=== PATIENT | female | born 1950 | race Caucasian/White ===

== ENCOUNTER → 2018-06-11 13:22 | Outpatient (CLI) | payer MEDICARE, BC, SELFPAY ==
[2018-06-11 13:15] VITALS: BMI 30.9
--- NOTE | 2018-06-11 13:24 | RAD_ITS ---
STUDY: X-RAY - LUMBAR SPINE REASON FOR EXAM: Female, 67 years old. Chronic low back pain TECHNIQUE: 4 view(s) of the lumbar spine were obtained. Including flexion and extension views COMPARISON: None FINDINGS: Normal lumbar lordosis. There is a levoscoliosis of the lumbar spine. There is a normal alignment of the vertebrae. There is multilevel endplate spondylosis of the lumbar vertebrae. There is multi-level degenerative disc disease with multi-level disc space narrowing. There is no demonstrated fracture. The soft tissue structures are unremarkable. RAD/L/S Spine Min 4 Views IMPRESSION: Degenerative changes of the spine, as detailed above. Electronically Signed: Ra Anguiano DO at 8:26 EST Tel , Service support ,
== END ==
PROVIDERS: Family Provider Family Medicine; PCP Family Medicine; Referring Provider Orthopaedic Surgery; Visit Provider Orthopaedic Surgery
DX: M54.5 Low back pain (principal)
CPT/HCPCS: 72110

== ENCOUNTER → 2018-06-27 12:28 | Outpatient (CLI) | payer MEDICARE, BC, SELFPAY ==
[2018-06-11 13:15] VITALS: BMI 30.9
--- NOTE | 2018-06-27 12:34 | MRI_ITS ---
STUDY: MRI LUMBAR SPINE WITHOUT CONTRAST REASON FOR EXAM: Female, 67 years old. Back pain, bilateral leg pain with numbness and tingling. Stenosis. TECHNIQUE: Standardized fat and water weighted pulse sequences were obtained in the sagittal and axial planes. COMPARISON: 02/16/2017. FINDINGS: T11-T12: (Sagittal only). Normal endplates. Normal disc height, hydration and morphology. No ventral extradural defect. Normal central canal and bilateral intervertebral neural foramina. T12-L1: (Sagittal only). Anterior marginal spurs. Normal endplates. Prominent Schmorl's node in the left side of the T12 inferior endplate. Mild disc space height narrowing with small posterior bulging disc. Normal central canal and bilateral intervertebral neural foramina. Normal lumbar lordosis. There is no substantial scoliosis. Normal conus medullaris that terminates at the lower T12 vertebral body level. L1-2: Tiny Schmorl's node in the L1 inferior endplate. Normal L2 superior endplate. Moderate disc space height narrowing. Normal central canal and bilateral lateral recesses. Normal facet joints. Normal bilateral intervertebral neural foramina. L2-3: Modic type I degenerative vertebral marrow edema underneath the vertebral endplates. Small anterior and posterior marginal spurs.. Moderate disc space height narrowing. Small posterior bulging disc. Mild to moderate central canal stenosis with an AP canal diameter of 8 mm. Mild dorsal epidural lipomatosis. Normal bilateral lateral recesses. Mild asymmetric degenerative facet arthropathy. Normal bilateral intervertebral neural foramina. L3-4: Moderately pronounced disc space height narrowing. Modic type II degenerative vertebral marrow fatty changes underneath the vertebral endplates. Pronounced central canal stenosis with an AP canal diameter of 4.6 mm. Prominent dorsal epidural lipomatosis. Mild to moderate asymmetric degenerative facet arthropathy. Moderate stenosis of the right intervertebral neural foramen. Normal left intervertebral neural foramen. L4-5: Normal endplates. Moderate disc space height narrowing. Severe central canal stenosis with an AP canal diameter is 3.6 mm. Moderate dorsal epidural lipomatosis at. Left posterior ligamentum flavum hypertrophy. Moderately pronounced left degenerative facet hypertrophy. Mild right degenerative facet arthropathy. Mild stenosis of the left intervertebral neural foramen. Normal right intervertebral neural foramen. L5-S1: Normal endplates. Normal disc height, hydration and morphology. Normal bilateral facet joints. Normal central canal and bilateral lateral recesses. Normal bilateral intervertebral neural foramina. Normal visualized sacral ala. Normal visualized paraspinous soft tissue structures. MRI/Spine Lumbar (Routine) IMPRESSION: 1. Severe central canal stenosis at L4-L5 disc level secondary to developmentally short pedicles and dorsal epidural lipomatosis. The AP canal diameter is 3.6 mm. This is unchanged. 2. Pronounced central canal stenosis at L3-L4 disc level with an AP canal diameter 4.6 mm, moderate stenosis of the right intervertebral neural foramen and mild to moderate asymmetric degenerative facet arthropathy. This is unchanged. 3. No MRI evidence of lumbar extruded disc fragment. 4. Mild increase L2-L3 disc space height narrowing with new Modic type I degenerative vertebral marrow edema underneath the vertebral endplates. Small posterior bulging disc and mild to moderate central canal stenosis are unchanged. Electronically Signed: Nando Gonzales MD at 15:51 EST , Service support ,
== END ==
PROVIDERS: Family Provider Family Medicine; PCP Family Medicine; Referring Provider Orthopaedic Surgery; Visit Provider Orthopaedic Surgery
DX: M48.061 Spinal stenosis, lumbar region without neurogenic claudication (principal); M41.9 Scoliosis, unspecified
CPT/HCPCS: 72148

== ENCOUNTER → 2019-02-24 12:57 | Outpatient (CLI) | payer MEDICARE, BC, SELFPAY ==
[2018-08-20 10:36] VITALS: BMI 30.9
[2019-02-24 14:11] LABS: Amphetamine Urine VISTA NEGATIVE (<1000 ng/mL); Barbiturate Urine VISTA NEGATIVE (< 200 ng/mL); Benzodiazepine Urine VISTA NEGATIVE (< 200 ng/mL); Cocaine Urine VISTA NEGATIVE (< 300 ng/mL); Ecstacy Urine VISTA NEGATIVE (< 500 ng/mL); Methadone Urine VISTA NEGATIVE (< 300 ng/mL); PCP Urine VISTA NEGATIVE (< 25 ng/mL); THC Urine VISTA NEGATIVE (< 50 ng/mL); Vista UDS pH Range 5
== END ==
PROVIDERS: Family Provider Family Medicine; PCP Family Medicine; Referring Provider Anesthesiology Pain Medicine; Visit Provider Anesthesiology Pain Medicine
DX: F11.20 Opioid dependence, uncomplicated (principal)
CPT/HCPCS: 80307

== ENCOUNTER → 2019-10-09 | Outpatient (CLI) | payer MEDICARE, BC, SELFPAY ==
[2018-08-20 10:36] VITALS: BMI 30.9
[2019-10-09 13:17] LABS: Amphetamine Urine VISTA NEGATIVE (<1000 ng/mL); Barbiturate Urine VISTA NEGATIVE (< 200 ng/mL); Benzodiazepine Urine VISTA NEGATIVE (< 200 ng/mL); Cocaine Urine VISTA NEGATIVE (< 300 ng/mL); Ecstacy Urine VISTA NEGATIVE (< 500 ng/mL); Methadone Urine VISTA NEGATIVE (< 300 ng/mL); PCP Urine VISTA NEGATIVE (< 25 ng/mL); THC Urine VISTA NEGATIVE (< 50 ng/mL); Vista UDS pH Range 5
== END | disposition home or self-care (01) ==
PROVIDERS: PCP Family Medicine; Referring Provider Anesthesiology Pain Medicine; Visit Provider Anesthesiology Pain Medicine
DX: F11.20 Opioid dependence, uncomplicated (principal)
CPT/HCPCS: 80307

== ENCOUNTER → 2019-12-01 15:17 | Outpatient (CLI) | payer MEDICARE, BC, SELFPAY ==
[2018-08-20 10:36] VITALS: BMI 30.9
--- NOTE | 2019-12-01 15:25 | RAD_ITS ---
STUDY: X-RAY - PELVIS AND RIGHT HIP REASON FOR EXAM: Female, 69 years old. BACK PAIN THAT RADIATES TO RIGHT HIP, NUMBNESS AND TINGLING TECHNIQUE: 3 views of the pelvis and hip. COMPARISON: None. FINDINGS: There is a non-specific bowel gas pattern. Normal visualized soft tissue structures. There is partially visualized levoscoliosis of the lumbar spine. There is postoperative change in the pelvis. Normal bilateral iliac wings, sacroiliac joints and visualized sacrum. Normal bilateral superior and inferior pubic rami. Normal pubic symphysis. Normal bilateral ischial tuberosities. Normal visualized femoral head. Normal acetabulum. Normal hip joint. RAD/HIP, UNI W/ Pelvis 2-3 Views IMPRESSION: Partially Visualized lumbar spine levoscoliosis, Normal x-ray examination of the pelvis and hip. Postoperative change within the pelvis. Electronically Signed: Zuri Montero MD at 6:54 EDT Tel , Service support ,
--- NOTE | 2019-12-01 15:25 | MRI_ITS ---
STUDY: MRI LUMBAR SPINE WITHOUT CONTRAST REASON FOR EXAM: Female, 69 years old. back and rt leg pain, chronic pain , NKI TECHNIQUE: Standardized fat and water weighted pulse sequences were obtained in the sagittal and axial planes. COMPARISON: 06/27/2018 FINDINGS: T12-L1: Incompletely imaged. Normal lumbar lordosis. There is a levoscoliosis of the lumbar spine. Normal conus medullaris that terminates at the L1 level. L1-2: Bulging annulus and bilateral facet joint effusions with mild right foraminal stenosis. L2-3: Bulging annulus and bilateral facet hypertrophy and right facet joint effusion with mild central canal and moderate right foraminal stenoses. L3-4: Bulging annulus, epidural lipomatosis and bilateral facet hypertrophy with moderate to severe central canal and moderate to severe right and mild left foraminal stenoses. L4-5: Bulging annulus, epidural lipomatosis, and bilateral facet hypertrophy with moderate central canal and moderate to severe left foraminal stenoses. L5-S1: Bulging annulus and bilateral facet hypertrophy without compressive sequelae. Normal visualized sacral ala. Normal visualized paraspinous soft tissue structures. MRI/Spine Lumbar (Routine) IMPRESSION: Multilevel degenerative disease and epidural lipomatosis as described, not significantly changed. Moderate to severe foraminal stenoses are present on the right at L3-4 and on the left at L4-5. Moderate to severe central canal stenosis at the L3-4 level. Electronically Signed: Gurmeet Wise MD at 17:29 EDT Tel , Service support ,
== END ==
PROVIDERS: PCP Family Medicine; Referring Provider Anesthesiology Pain Medicine; Visit Provider Anesthesiology Pain Medicine
DX: M54.9 Dorsalgia, unspecified (principal); M79.606 Pain in leg, unspecified; M25.551 Pain in right hip
CPT/HCPCS: 72148; 73502

== ENCOUNTER → 2020-06-17 15:27 | Outpatient (CLI) | payer MEDICARE, BC, SELFPAY ==
[2020-06-17 16:51] LABS: Amphetamine Urine VISTA NEGATIVE (<1000 ng/mL); Barbiturate Urine VISTA NEGATIVE (< 200 ng/mL); Benzodiazepine Urine VISTA NEGATIVE (< 200 ng/mL); Cocaine Urine VISTA NEGATIVE (< 300 ng/mL); Ecstacy Urine VISTA POSITIVE (< 500 ng/mL); Methadone Urine VISTA NEGATIVE (< 300 ng/mL); PCP Urine VISTA NEGATIVE (< 25 ng/mL); THC Urine VISTA NEGATIVE (< 50 ng/mL); Vista UDS pH Range 5
== END ==
PROVIDERS: PCP Family Medicine; Referring Provider Anesthesiology Pain Medicine; Visit Provider Anesthesiology Pain Medicine
DX: F11.20 Opioid dependence, uncomplicated (principal)
CPT/HCPCS: 80307

== ENCOUNTER → 2020-10-14 14:57 | Outpatient (CLI) | payer MEDICARE, BC, SELFPAY ==
--- NOTE | 2020-10-14 15:03 | RAD_ITS ---
STUDY: X-RAY - CERVICAL SPINE REASON FOR EXAM: Female, 69 years old. NECK/L ARM PAIN TECHNIQUE: 3 view(s) of the cervical spine were obtained. COMPARISON: None FINDINGS: Normal anterior atlantoaxial articulation. Normal odontoid process. Normal cervical lordosis. Normal vertebral bodies and endplates. There is multi-level degenerative disc disease with multilevel disc space narrowing. The soft tissue structures are unremarkable. RAD/Cerv Spine 2 or 3 Views IMPRESSION: Multilevel degenerative changes, no acute findings Electronically Signed: Oswaldo Gomez MD at 17:06 EDT , Service support ,
== END ==
PROVIDERS: PCP Family Medicine; Referring Provider Anesthesiology Pain Medicine; Visit Provider Anesthesiology Pain Medicine
DX: M54.2 Cervicalgia (principal); M79.602 Pain in left arm
CPT/HCPCS: 72040

== ENCOUNTER → 2020-11-26 09:45 | Outpatient (CLI) | payer MEDICARE, BC, SELFPAY ==
--- NOTE | 2020-11-26 09:51 | RAD_ITS ---
STUDY: X-RAY - LEFT SHOULDER REASON FOR EXAM: Female, 70 years old. Pain, decreased range of motion TECHNIQUE: 4 view(s) of the shoulder. COMPARISON: None. FINDINGS: There is moderate degenerative arthrosis of the glenohumeral articulation. There is degenerative arthrosis of the acromioclavicular joint without inferior osseous spur formation. Normal acromion. Normal humeral head and visualized proximal humerus. The soft tissue structures are unremarkable. Normal visualized pulmonary apex. RAD/Shoulder min 2 Views IMPRESSION: Glenohumeral and AC joint arthrosis, no demonstrated fracture or suspicious osseous lesion Electronically Signed: Oswaldo Gomez MD at 10:42 EDT , Service support ,
== END ==
PROVIDERS: PCP Family Medicine; Referring Provider Anesthesiology Pain Medicine; Visit Provider Anesthesiology Pain Medicine
DX: M25.512 Pain in left shoulder (principal)
CPT/HCPCS: 73030

== ENCOUNTER → 2020-12-29 07:05 | Outpatient (CLI) | payer MEDICARE, BC, SELFPAY ==
--- NOTE | 2020-12-29 07:09 | MRI_ITS ---
STUDY: MRI LEFT SHOULDER REASON FOR EXAM: Female, 70 years old. pain, NO TRAUMA, C/O SHOUDLER ''POPPING and quot; TECHNIQUE: Standardized fat and water weighted pulse sequences were obtained in all 3 orthogonal planes. COMPARISON: X-ray dated 11/26/2020. FINDINGS: Mild supraspinatus and infraspinatus tendinosis with low-grade partial thickness insertional tendon tears (coronal image 11 series 5). Mild infraspinatus tendinosis without tear. Mild subscapularis tendinosis without tear. Normal teres minor tendon. Moderate supraspinatus muscle atrophy (sagittal image 1 series 6). Mild intracapsular long biceps tendinosis. Biceps labral anchor intact. Labral degeneration with tearing (axial images 7 and 8 series 2). Capsular ligaments intact. Normal rotator cuff interval. Moderate glenohumeral cartilage loss with inferior glenoid bone marrow edema/contusion. Small volume glenohumeral joint effusion with multiple anterior joint space small loose bodies (axial image 12 and coronal image 15). No subacromium subdeltoid bursitis. Moderate acromioclavicular joint arthrosis. Minimal anterior interval narrowing. No acute fracture, dislocation or bone destruction. Intact coracohumeral and coracoacromial ligaments. Normal quadrilateral space. Normal axillary space. Normal deltoid muscle. Normal trapezius muscle. MRI/Upper Ext Joint Only(Routine) IMPRESSION: Rotator cuff tendinosis with low-grade partial thickness insertional tears Moderate supraspinatus muscle atrophy Mild intracapsular long biceps tendinosis Labral degeneration with tearing Moderate glenohumeral and AC joint arthrosis with early anterior interval narrowing Joint effusion with anterior joint space loose bodies/debris Electronically Signed: Liu Schmidt DO at 10:06 EDT Tel , Service support ,
== END ==
PROVIDERS: PCP Family Medicine; Referring Provider Physician Assistant; Visit Provider Physician Assistant
DX: M75.42 Impingement syndrome of left shoulder (principal)
CPT/HCPCS: 73221

== ENCOUNTER → 2021-02-18 12:35 | Outpatient (CLI) | payer MEDICARE, BC, SELFPAY ==
--- NOTE | 2021-02-18 12:41 | ECHOD_ITS ---
Reason For Study: Abnormal EKG Procedure This was a 2D Doppler, Color Flow transthoracic echocardiogram. Exam performed in department. Left Ventricle Normal LV size. Mild concentric left ventricular hypertrophy. Left ventricular systolic function is normal. The estimated ejection fraction is 65 %. Stage 1 diastolic dysfunction. No regional wall motion abnormalities noted. Right Ventricle Normal RV size. Normal systolic function. Atria Normal left atrium. Normal right atrium. Mitral Valve Normal mitral valve. Tricuspid Valve Normal tricuspid valve. Aortic Valve Normal aortic valve. Trisinus/trileaflet aortic valve. Pulmonic Valve Normal pulmonic valve. Great Vessels Normal aortic root. The pulmonary artery is normal size. Normal inferior vena cava. Pericardium/Pleural No pericardial effusion. MMode/2D Measurements & Calculations LVIDd: 3.8 cm IVSd: 1.2 cm LA dimension: 4.4 cm LVIDs: 1.7 cm LVPWd: 1.2 cm RVDd: 3.4 cm FS: 55.3 % LAV(MOD-bp): 62.6 ml LA A4 area: 19.9 cm2 RA A4 area: 13.5 cm2 LAV(MOD-bp) Indexed: 32.8 ml/m2 LAV(MOD-sp2): 61.8 ml LAV(MOD-sp4): 62.3 ml Time Measurements MV dec time: 0.21 sec Doppler Measurements & Calculations MV E max sammy: 84.6 cm/sec Lat Peak E' Sammy: 2.0 cm/sec Med Peak E' Sammy: 3.4 cm/sec MV A max sammy: 106.8 cm/sec E/E' lat: 42.3 E/E' med: 25.2 MV E/A: 0.79 MV V2 max: 117.5 cm/sec MV P1/2t max sammy: 89.6 cm/sec Ao V2 max: 140.6 cm/sec MV max P.5 mmHg MV P1/2t: 81.4 msec Ao max P.9 mmHg MV V2 mean: 63.7 cm/sec MV dec slope: 322.4 cm/sec2 MV mean P.9 mmHg MVA(P1/2t): 2.7 cm2 MV V2 VTI: 34.5 cm LV V1 max: 117.8 cm/sec PA V2 max: 79.0 cm/sec LV V1 max P.5 mmHg ECHO/Echo Complete Interpretation Summary Normal LV size. Mild concentric left ventricular hypertrophy. Left ventricular systolic function is normal. The estimated ejection fraction is 65 %. Stage 1 diastolic dysfunction. Ordering Physician: Marcos Mata Referring Physician: Michael Perdomo Performed By: Gene Beyer RCS
== END ==
PROVIDERS: PCP Family Medicine; Referring Provider Internal Medicine Cardiovascular Disease; Visit Provider Internal Medicine Cardiovascular Disease
DX: R06.02 Shortness of breath (principal)
CPT/HCPCS: 93306

== ENCOUNTER 2021-02-22 05:43 | Day surgery (SDC) | payer MEDICARE, BC, SELFPAY ==
[2021-02-22] VITALS (12 sets, daily range): BP systolic 109–158; BP diastolic 61–114; PULSE 54–88; RESP 16–18; TEMP 36.1–37.1; O2SAT 86–96; BMI 34.2
--- NOTE | 2021-02-22 07:15 | HP.PCM_ITS ---
History and Physical Date of Admission: 02/22/21 Date of Service: 01/28/21 MR#:[id number]: CANDY DAYRep #:[id number] Provider:Dr. Pedro Morataya DOAge/Sex: 70/F Location[facility]:Signed Intake Intake Visit Reasons: L shoulder Allergies ibuprofen Allergy (Mild, Verified 01/28/21 10:07) rash sulfamethoxazole [From Bactrim] Allergy (Mild, Verified 01/28/21 10:07) rash trimethoprim [From Bactrim] Allergy (Mild, Verified 01/28/21 10:07) rash Medications hydrocodone-acetaminophen 5-325mg 5mg-325mg 1 tab PO Q6H PRN 01/21/18 [History Confirmed 01/28/21] gabapentin 100 mg capsule 100 mg PO DAILY 06/11/18 [History Confirmed 01/28/21] sertraline 25 mg tablet ea PO 12/13/20 [History Confirmed 01/28/21] metoprolol tartrate 25 mg tablet 25 mg PO BID tab 01/05/21 [History Confirmed 01/28/21] tizanidine 4 mg tablet 4 mg PO PRN tab 01/05/21 [History Confirmed 01/28/21] [facility] Medical History (Updated 01/28/21 @ 11:[address] Pedro Morataya DO) Acute foot pain Allergic rhinitis Anxiety state Fibrocystic breast changes, bilateral History of herniated intervertebral disc Mastodynia Pure hypertriglyceridemia Surgical History History of hysterectomy (~2002) History of ileostomy Family History Mother No problems noted. Social History Smoking Status: Never smoker HPI L shoulder Details: Parts of this documentation were recorded by a scribe, this documentation accurately reflects the service provided and the decisions made by me, Dr. Pedro Morataya DO 01/28/21 0752. CANDY DAY is a 70 year old F here today to discuss possible arthroscopy of her left shoulder. Patient had a left shoulder MRI on: 12/29/2020. Pain is described as constant. 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 Patient voiced she has difficulty with sleeping d/t her pain. Patient voiced she has failed medications to control her pain. Patient has been using a topical cream through [employer], that has been providing some relief. Patient did begin physical therapy through [facility]. Right now, it has been placed on hold d/t the physical therapist coming down with ROBERTO. Patient does not want to go through [facility]. Patient states she has tried and failed injections through Dr. Odom and through our office. Pain is located with her deltoid. Tender to the touch. Denies numbness, tingling or other associated symptoms. Pain at times with radiate to her forearm. Explained mechanical pain. Denies any accident or injury. Patient is right hand dominant. Patient denies any substance use, denies tobacco use, and voiced she may have a glass of wine per week. Patient will take 3 tablet of the hydrocodone-acetaminophen 5/325mg daily, and has been for years. Ortho Exam General General: Yes no acute distress and Yes well groomed Neurologic: Yes alert and Yes oriented x3 Psychologic: Yes reasonable and appropriate Left Shoulder Skin/Wound: No ecchymosis and No erythema Testing: Yes Hawkin's, No TTP AC Joint, Yes AROM-Forward Elevation 0-180 (with pain), Yes AROM-External Rotation at 90 0-60, Yes empty can and Yes belly press normal SHOULDER: no joint effusion good strength pain with resisted abduction 5/5 external strength Supplemental Info 12/29/2020 MRI left shoulder: Supraspinatus infraspinatus tendinosis with partial- thickness insertional fraying subscapularis tendinosis moderate supraspinatus muscle atrophy biceps tendinosis moderate glenohumeral cartilage loss multiple anterior joint space loose bodies no subacromial bursitis moderate AC joint arthrosis Personally reviewed the patient's medical history, medications, surgeries and recent exams if available. Explained patient may not benefit from shoulder arthroscopy d/t arthritis. Explained patient may or may not have painful popping after the procedure. Explained we can proceed with surgery to clean out the loose bodies, and may have painful popping post-op still. Risks, benefits and alternatives of surgery reviewed including risk of bleeding, infection, nerve, artery and/or tissue damage continued pain or symptoms and expected post-operative course. Discussed and explained a possible shoulder replacement. Explained it would resurface her joint, and remove the loose bodies. Also discussed continuing the consecrative treatments such as, physical therapy, NSAIDs, and steroid injections. Patient would not like to proceed with shoulder replacement. Patient would like to proceed with a shoulder arthroscopy. Explained after 48 hours the initial dressing would come off post-op. Explained physical therapy is started post-op. Discussed the date of February 22, 2021. Explained and discussed with patient will obtain medical clearance from her PCP. Provided patient with a copy of the signed surgical consent. All questions answered. Patient in agreement of plan. Follow up two weeks post-op or sooner if pain, swelling, numbness or associated symptoms, or concerns develop. Coding Level of Care Code Off vis,est,level 3 Diagnoses DJD of left shoulder M19.012 Osteoarthritis type: primary Loose body in left shoulder M24.012 Impingement syndrome, shoulder, left M75.42 Tendinopathy of left biceps M67.922 Assessment and Plan Assessment and Plan (1) DJD of left shoulder: Status: Acute Qualifiers: Osteoarthritis type: primary Qualified Code(s): M19.012 - Primary osteoarthritis, left shoulder (2) Loose body in left shoulder: Status: Acute (3) Impingement syndrome, shoulder, left: Status: Acute (4) Tendinopathy of left biceps: Status: Acute Plan - Dr. Pedro Morataya, DO: Ms. murray has ongoing left shoulder pain. She has failed conservative treatment including physical therapy subacromial and glenohumeral injection therapy. She continues to have mechanical feelings in the left shoulder joint that are very painful. We discussed arthroscopic surgery versus joint replacement surgery risks benefits and alternatives of both. She understands that there is significant risk that she continues to have pain after left shoulder arthroscopy removal of loose bodies subacromial decompression chondroplasty possible biceps tenotomy possible rotator cuff debridement from her amount of shoulder arthrosis. We discussed that total shoulder arthroplasty would be more of a definitive option and predictable outcome. She does not wish to proceed with shoulder arthroplasty at this time and does wish to try shoulder arthroscopy for the mechanical feelings. Explained patient may not benefit from shoulder arthroscopy d/t arthritis. Explained patient may or may not have painful popping after the procedure. Explained we can proceed with surgery to clean out the loose bodies, and may have painful popping post-op still. Risks, benefits and alternatives of surgery reviewed including risk of bleeding, infection, nerve, artery and/or tissue damage continued pain or symptoms and expected post-operative course. Discussed and explained a possible shoulder replacement. Explained it would resurface her joint, and remove the loose bodies. Also discussed continuing the consecrative treatments such as, physical therapy, NSAIDs, and steroid injections. Patient would not like to proceed with shoulder replacement. Patient would like to proceed with a shoulder arthroscopy. Explained after 48 hours the initial dressing would come off post-op. Explained physical therapy is started post-op. Discussed the date of February 22, 2021. Explained and discussed with patient will obtain medical clearance from her PCP. Needs to stop all NSAIDs 7 days prior to surgery which she does not take anyway. Provided patient with a copy of the signed surgical consent. All questions answered. Patient in agreement of plan. Follow up two weeks post-op or sooner if pain, swelling, numbness or associated symptoms, or concerns develop. I have re-examined the patient. There are no clinical changes since date of exam
[2021-02-22] MEDS: Cefazolin 2 GM in 0.9% Normal Saline 100 ML IV (07:24)
[2021-02-22] MEDS: Epinephrine (1 mg/ml) 1 MG/ML VIAL (07:54)
[2021-02-22] MEDS: Lidocaine 1% /Epi 1:100 (20ml) 20 ML Vial (07:54)
[2021-02-22] MEDS: Bupivacaine Mpf 0.5% 30 ML VIAL (08:18)
[2021-02-22] MEDS: MethylPREDNISolone Acetate 40 MG/ML Vial IM (08:18)
--- NOTE | 2021-02-22 08:30 | PCM.OPRPT ---
Report of Operation Date of Procedure: 02/22/21 Description of Surgical Findings:: Preoperative diagnosis: Left shoulder DJD loose bodies impingement Postoperative diagnosis: Grade 4 cartilage wear humeral head and glenoid degenerative labral tearing loose bodies anterior acromial spurring causing impingement Procedure: Arthroscopic removal of loose bodies chondroplasty of the humeral head subacromial decompression Anesthesia: General with interscalane block; EBL: 10 cc Complications: none Indication for procedure: 70-year-old female patient with mechanical left shoulder pain who failed conservative treatment and wished to undergo elective arthroscopic surgery I did explain to her due to the degree of her arthrosis she is high risk for having continued symptoms and pain and a total shoulder arthroplasty may be more appropriate however patient did wish to proceed with an arthroscopic surgery. risks benefits and alternatives of the procedure were reviewed including risk of bleeding infection nerve artery tissue damage need for further surgery continued pain postoperative stiffness and need for postoperative physical therapy and continued pain. Procedure : Patient was met in the preoperative holding area the operative extremity was identified by both the patient and the physician and was marked. Patient was met by anesthesia and brought back to the operating room on a wheeled cart. She was transferred to the operating table in the supine position. Anesthesia was started. Patient was then positioned in the beachchair configuration. Bony prominences were well-padded. The patient was prepped and draped in the usual sterile fashion. A timeout was called to ensure the proper patient procedure and extremity were being contemplated. Anatomic landmarks were palpated and marked with a marking pen. A 1% lidocaine with epinephrine was injected into the planned portal sites. An 11 blade scalpel was used to make a stab incision in the posterior lateral portal. Arthroscope was inserted into the glenohumeral space with ease. Inflow and outflow tubes were attached and arthroscopic visualization began. An anterior portal was established with an 18-gauge spinal needle. Immediately there was noted to be severe glenohumeral arthrosis with grade 4 cartilage wear of the humeral head and glenoid degenerative labral tearing circumferentially and loose bodies present within the glenohumeral joint and the axillary pouch, shaver was used to remove the loose bodies and perform a labral debridement and chondroplasty rotator cuff was evaluated there was only slight fraying of the anterior supraspinatus but the footprint was intact and the same goes for the subscapularis, the biceps did not have any significant tearing or inflammation and was left alone the arthroscope was then repositioned into the subacromial space there was significant bursal thickening of acromial decompression of bursal tissue as well as acromioplasty were performed there is anterior acromial spurring which was removed bursal side of the cuff was evaluated and there was no full-thickness tear seen or palpated with probe probe the wound was thoroughly irrigated through the scope followed by a subacromial injection with 40 mg Depo-Medrol 4 mg of morphine and 8 cc of 0.5% Marcaine plain. Suture portals were closed with 3-0 nylon arthroscopic stitches followed by Xeroform 4 x 4 ABD and a Ioban dressing. A regular sling was placed. Anesthesia was reversed and patient tolerated the procedure well was and was transferred to the PACU all counts were correct patient will follow-up in the office in 2 weeks patient may begin active range of motion immediately
--- NOTE | 2021-02-22 08:35 | PCM.DC ---
Discharge Instructions Dressing / Incision Additional Dressing/Incision Instructions:: Leave the dressing on and intact for 48 hours. Then remove and shower with warm water and antibacterial soap daily. But do not submerge in tub for 3 weeks. ice shoulder 15 min on and 15 mins off next 72 hrs. May remove sling for elbow wrist and shoulder immediate range of motion when tolerated sling is for comfort only and may be removed . discontinue sling over the course to the week as pain allow. Do not lift push or pull greater then 5 lbs with operative extremity. Encourage finger and wrist range of motion. If any concerns call Dr. Morataya's office. Follow Up Care Please Follow Up With: Pedro Morataya DO When: 2 weeks Test Results: Test results from this visit will be discussed in further detail at your follow-up appointment, if applicable. Discharge Plan Admission Attending Provider: Pedro Morataya Primary Care Provider: Michael Perdomo Discharge Orders/Prescriptions Prescriptions: New oxycodone 5 mg tablet 5 - 10 mg PO Q4H PRN (Reason: pain) 7 Days Qty: 60 RF: 0 Discontinued hydrocodone-acetaminophen 5-325 mg tablet 1 tab PO Q6H PRN (Reason: Pain) RF: 0 No Action gabapentin 100 mg capsule 100 mg PO TID RF: 0 sertraline 25 mg tablet 25 mg PO DAILY RF: 0 metoprolol tartrate 25 mg tablet 25 mg PO BID RF: 0 tizanidine 4 mg tablet 4 mg PO PRN PRN (Reason: Pain) RF: 0 acyclovir 200 mg capsule 200 mg PO DAILY PRN (Reason: SHINGLES) RF: 0 losartan 50 mg tablet 50 mg PO DAILY Qty: 90 RF: 3 Referrals / Follow Up: Michael Perdomo MD [Primary Care Provider] - Disposition Disposition (needs filled in before D/C Order can be placed): Home, Self Care
== END 2021-02-22 11:45 | disposition home or self-care (01) ==
LOC: SDC 05:44 → AC 05:45
PROVIDERS: PCP Family Medicine; Referring Provider Orthopaedic Surgery; Visit Provider Orthopaedic Surgery
PROC: (CPT 29827; principal; 2021-02-22 07:10)
DX: M19.012 Primary osteoarthritis, left shoulder (principal); M24.012 Loose body in left shoulder; M75.42 Impingement syndrome of left shoulder; M67.922 Unspecified disorder of synovium and tendon, left upper arm; I10 Essential (primary) hypertension; E78.5 Hyperlipidemia, unspecified; E66.9 Obesity, unspecified; Z68.34 Body mass index [BMI] 34.0-34.9, adult; Z78.0 Asymptomatic menopausal state; Z20.822 Contact with and (suspected) exposure to COVID-19
CPT/HCPCS: 01630; 29823; 29826; 64415; 87426; J7120; J2405

== ENCOUNTER 2021-07-19 07:04 | Outpatient (CLI) | payer MEDICARE, BC, SELFPAY ==
--- NOTE | 2021-07-19 07:12 | CT_ITS ---
STUDY: CT LEFT SHOULDER REASON FOR EXAM: Posttraumatic osteoarthritis of the left shoulder, surgical planning. TECHNIQUE: The patient was scanned in a multi detector CT scanner. High resolution transaxial imaging was performed without the administration of intravenous contrast material. Sagittal and coronal images were reconstructed. Individualized dose optimization techniques were used for this CT. COMPARISON: MRI images 12/29/2020. FINDINGS: There is glenohumeral arthrosis with small marginal osteophytes of the humeral head, subchondral cystic change of the inferior glenoid and joint space narrowing (coronal reconstructions 48-54). There is cystic change of the greater tuberosity (coronal reconstruction 43). Normal coracoid process. There is mild acromioclavicular arthrosis (coronal reconstruction 45) with mild cystic change of the distal clavicle. There is a Type II morphology (curved), with a neutral orientation. There is atrophy with partial fat replacement of the supraspinatus muscle (sagittal reconstruction 48). CT/Extremity Upper without Contra IMPRESSION: Glenohumeral osteoarthritis. Mild acromioclavicular osteoarthritis. Atrophy of the supraspinatus muscle. Electronically Signed: Iraj Masters MD at 14:58 EDT ,
== END 2021-07-19 23:59 | disposition home or self-care (01) ==
LOC: CT 07:07
PROVIDERS: PCP Family Medicine; Referring Provider Student in an Organized Health Care Education/Training Program; Visit Provider Student in an Organized Health Care Education/Training Program
DX: M19.112 Post-traumatic osteoarthritis, left shoulder (principal)
CPT/HCPCS: 73200

== ENCOUNTER 2021-08-11 05:56 | Day surgery (SDC) | payer MEDICARE, BC, SELFPAY ==
--- NOTE | 2021-08-03 10:54 | EKG12_ITS ---
Test Reason : PREOP Blood Pressure : / mmHG Vent. Rate : 056 BPM Atrial Rate : 056 BPM P-R Int : 192 ms QRS Dur : 072 ms QT Int : 438 ms P-R-T Axes : 017 -09 141 degrees QTc Int : 422 ms Sinus bradycardia Left ventricular hypertrophy with repolarization abnormality ST/T wave abnormality: consister LVH repolarization; myocardial ischemia Abnormal ECG Confirmed by DANYELLE NAVARRO, WILFRID ([id number]), multimedia editor MARITO MOULTON ([id number]) on 08/04/2021 11:22:02 AM Referred By: Chirag Peres Confirmed By:WILFRID BASSETT MD
--- NOTE | 2021-08-03 11:10 | RAD_ITS ---
STUDY: X-RAY CHEST REASON FOR EXAM: Female, 70 years old. Preop TECHNIQUE: 2 views. PA and lateral. COMPARISON: None. FINDINGS: LUNGS: No consolidation. No pneumothorax. MEDIASTINUM: Aorta tortuous and atherosclerotic.. CARDIAC SILHOUETTE: Not enlarged. BONES AND SOFT TISSUES: Degenerative changes in the dorsal spine and scoliosis. No acute abnormalities. Surgical clips right upper abdomen previous cholecystectomy. RAD/Chest PA and Lateral IMPRESSION: No evidence of active intrathoracic disease. Electronically Signed: Laureen Guillen MD at 3:36 EDT ,
[2021-08-03 11:46] LABS: Absolute Lymphocyte Count 1.27 X10^3/uL (0.83-4.51); Absolute Neutrophil Count 3.2 X10^3/uL (2.0-7.7); Basophil# 0.04 X10^3/uL; Basophil% 0.8 % (0-1); Eosinophil# 0.14 X10^3/uL; Eosinophils% 2.7 % (0-5); Hemoglobin 13.7 g/dL (12.0-15.0); Lymphocyte # 1.27 X10^3/ul (0.83-4.51); Lymphocyte % 24.2 % (19-41); Mean Corp Hgb Conc 33.4 g/dL (32-36); Mean Corpuscular Volume 89.9 fL (81-99); Mean Platelet Vol. 9.8 fl (6.2-12.0); Monocyte# 0.59 X10^3/uL; Monocyte% 11.3 % (0-10); NRBC Flagged by Analyzer 0 % (0-5); Neutrophil # 3.18 X10^3/uL (2.7-7.7); Neutrophil % 60.6 % (47-70); Platelet Count 208 K/mm3 (150-450); RBC Distribution Width CV 13.2 % (11.6-14.6); RBC Distribution Width SD 43.8 fl (35.1-43.9); Red Blood Count 4.56 M/mm3 (4.2-5.4); White Blood Count 5.2 K/mm3 (4.4-11.0)
[2021-08-03 12:15] LABS: Anion Gap 6 (5-15); BUN 15 mg/dL (7-18); BUN/Creat Ratio 16.7 RATIO (10-20); Calcium,Total 9.6 mg/dL (8.5-10.1); Chloride 108 mmol/L (98-107); EST Glomerular Filtration Rate 66 mL/min (>60); Est Glom Filt Rate - Afr Amer 79 mL/min (>60); Glucose 100 mg/dL (74-106); Sodium Level 139 mmol/L (136-145)
[2021-08-10 13:10] VITALS: BP 127/55; BP 139/83; PULSE 61; RESP 14; TEMP 36.1; O2SAT 94
[2021-08-11] VITALS (9 sets, daily range): BP systolic 120–139; BP diastolic 58–85; PULSE 50–78; RESP 15–16; TEMP 36–36.6; O2SAT 92–97; BMI 34.0
[2021-08-11] MEDS: Lactated Ringers 1,000 ML 999 ML IV (06:55)
[2021-08-11] MEDS: Gabapentin 600 MG Tablet PO (06:56)
[2021-08-11] MEDS: Lactated Ringers 1,000 ML 75 ML IV (06:56)
[2021-08-11] MEDS: Acetaminophen 500 MG Tablet 1000 MG PO (06:56)
[2021-08-11 07:40] LABS: Bedside Glucose 106 mg/dL (74-106)
--- NOTE | 2021-08-11 08:00 | BON_PTH ---
PATIENT: CANDY DAY LOC: [facility] [place] U#:[id number] AGE/SX: 70/F ROOM: RE08/11/[address]: Dr. Chirag Peres DO : 1950 BED: DIS: 08/11/2021 SPEC #: [id number] RECD: 08/11/21 12:48 STATUS: DK REQ #: [id number] RICH: 08/11/21 08:[address]: Chirag Peres DEPT: SURGICAL PATHOLOGY RECD BY: Rhea Deleon ENTERED: 08/12/21 07:21 SP TYPE: Bone OTHR DR: Dr. Michael Perdomo MD Tissues: Bone of shoulder, NOS Procedures: Decalcification bone/plaque Surgery Specimen Level IV HEADER OPERATION: Left reverse total shoulder arthroplasty PRE-OP DIAGNOSIS: Posttraumatic osteoarthritis left shoulder TISSUE SUBMITTED: Left humeral head MICROSCOPIC DIAGNOSIS Left humeral head, total shoulder replacement/resection: Humeral head with degenerative osteoarthritic changes. SJ:delia 08/17/2021 MICROSCOPIC DESCRIPTION Slides are reviewed. GROSS DESCRIPTION Received in fixative is one container labeled with the patient's name and designated left humeral head. The specimen consists of a humeral head measuring 5 x 4.5 x 2.5 cm. The articular surface shows areas of erosion and osteophyte formation. Magazine Editor sections are submitted in one cassette after decalcification. / JUDIT:delia 08/12/2021 TC:5 CPT: 52868, 74616
[2021-08-11] MEDS: Cefazolin 2 GM in 0.9% Normal Saline 100 ML IV (08:11)
[2021-08-11] MEDS: TXA 1000mg in NS100 100ml (IVPB at Incision) 660 MG IV (08:36)
[2021-08-11] MEDS: Lactated Ringers 1,000 ML 125 ML IV (10:30)
--- NOTE | 2021-08-11 11:01 | PCM.DC ---
Discharge Instructions Follow Up Care Test Results: Test results from this visit will be discussed in further detail at your follow-up appointment, if applicable. Discharge Plan Admission Attending Provider: Chirag Peres Primary Care Provider: Michael Perdomo Instructions Additional Instructions / Restrictions: Follow preprinted instructions from your surgeon's office Discharge Orders/Prescriptions Prescriptions: New hydrocodone-acetaminophen 5-325 mg tablet 2 tab PO Q6H PRN (Reason: pain) 7 Days Qty: 42 RF: 0 docusate sodium [Colace] 100 mg capsule 100 mg PO BID 7 Days Qty: 14 RF: 0 Continued gabapentin 100 mg capsule 100 mg PO TID RF: 0 metoprolol tartrate 25 mg tablet 25 mg PO BID RF: 0 tizanidine [Zanaflex] 4 mg tablet 4 mg PO PRN PRN (Reason: Pain) RF: 0 losartan 50 mg tablet 50 mg PO DAILY Qty: 90 RF: 3 Held hydrocodone-acetaminophen 5-325 mg tablet 1 tab PO 4X/DAY RF: 0 Hold Instructions: Resume on 08/25/21. Resume home dosing after post-op pain is improving Other Ambulatory Orders: 12 Lead EKG (Routine) Location: None Selected Ordered By: Dr. Liu Martinez Referrals / Follow Up: Michael Perdomo MD [Primary Care Provider] - Chirag Peres DO [STAFF PHYSICIAN] - Within 2 Weeks Disposition Disposition (needs filled in before D/C Order can be placed): Home, Self Care
--- NOTE | 2021-08-11 11:05 | RAD_ITS ---
STUDY: X-RAY - LEFT SHOULDER REASON FOR EXAM: Female, 70 years old. Post op -- AP and Lateral X-Ray of operative shoulder in PACU TECHNIQUE: 2 view(s) of the shoulder. COMPARISON: None. FINDINGS: The patient status post left reverse shoulder replacement. There is good alignment. RAD/Shoulder min 2 Views IMPRESSION: Status post left shoulder replacement. There is good alignment. Electronically Signed: Humberto Baltazar MD at 11:29 EDT ,
--- NOTE | 2021-08-11 11:27 | SUR.PHASEI ---
PATIENT MONITORED ON ETCO2 PER ERAS PROTOCOL. WNL.
--- NOTE | 2021-08-11 12:13 | SUR.PHASEI ---
FAMILY UPDATED VIA MASONRY INSTRUCTOR
--- NOTE | 2021-08-11 14:08 | PCM.OPRPT ---
Report of Operation Description of Surgical Findings:: Preoperative diagnosis: Left shoulder primary glenohumeral osteoarthritis Postoperative diagnosis: Left shoulder primary glenohumeral osteoarthritis Procedure: Left reverse total shoulder arthroplasty Surgeon: Chirag Peres DO Security Representative: Enedina Calvo PA-C Anesthesia: General endotracheal Manager Unit: Brennen Nogueira CRNA Complications: None apparent Drains: None Estimated blood loss: 150 cc Urinary output: None cc IV fluids: Per anesthesia record Specimens: None Surgical implants: Tornier Aequalis PerFORM+ reversed lateralized baseplate 25 mm diameter, +3 lateralized glenosphere cobalt chrome 36 mm diameter, flex shoulder system reverse tray eccentric low thickness +0 mm, standard PTC humeral stem Aequalis Ascend Flex 132.5 degree angle size 2B, reverse insert C thickness +6 mm ultrahigh molecular weight polyethylene Surgical indications: This is a 70-year-old female with persistent left shoulder pain. X-rays were obtained in the outpatient setting and demonstrated moderate primary glenohumeral osteoarthritis. She has had extensive treatment to her left shoulder including injections with short-term relief, physical therapy, articular debridement and subacromial decompression last fall without significant relief. We discussed anatomic versus reverse shoulder arthroplasty. She had significant weakness in her rotator cuff on exam. I recommended a reverse shoulder arthroplasty. We obtained a preoperative CT scan for planning. The risks, benefits, alternatives the procedure was reviewed with the patient and he agreed to proceed. Risks included but were not limited to bleeding, infection, instability, loss of life or limb, risk of anesthesia, neurovascular injury, persistent pain, stiffness, prolonged immobilization, need for additional surgery, loosening of orthopedic hardware. She expressed understanding and wished to proceed with surgery. Surgical details: Patient arrived to [facility] morning of the procedure and was greeted by the same day surgery staff. Prior to her procedure, I greeted the patient in the preoperative holding area I identified the patient by name, record number, and date of . Informed consent was confirmed. The operative extremity was marked. All questions were answered to patient satisfaction. Patient was also seen by anesthesia staff. Interscalene block was administered prior to procedure for postoperative analgesia. At time of her procedure, patient was brought to the operative suite and positioned supine on a standard table with a beachchair attachment. General anesthesia was induced after all bony prominences were well-padded. Endotracheal tube was placed. After adequate anesthesia and securing the tube, we prepared the patient to be positioned in the beachchair position. A well-padded head of merchandise buying was applied. The nonoperative extremity was placed in a well arm gunter. She was then brought into the beachchair position after we confirmed an appropriate blood pressure. We then spun the bed 45 degrees. The operative extremity was then prepared. In the butterfly wing of the bed was removed and a well-padded torso strap was applied to secure the patient to the bed. The operative extremity was now free. We then prepped and draped the left upper extremity in normal, sterile orthopedic fashion. We then performed a timeout with all parties in attendance in agreement with the side, site, and operation be performed. 2 g Ancef was administered prior to incision by anesthesia staff, as well as 1 g TXA IV. No concerns were voiced and we elected to proceed. I first marked a standard deltopectoral incision just lateral to the coracoid process in line with the long axis of the humerus. Skin was sharply incised with 10 blade scalpel. I then dissected bluntly through the subcutaneous layers and found the fat stripe between the deltoid and pectoralis major. The cephalic vein was then identified and protected. It was retracted laterally with the deltoid. I then bluntly dissected underneath the deltoid with a Marks elevator. Tray retractor was placed. The upper 1 cm of the pectoralis major was released. I then identified the long head of the biceps tendon in the intertubercular groove. This was tenodesed in situ with #2 FiberWire. I then amputated the biceps proximal to the tenodesis site and followed the tendon to the supraglenoid tubercle where it was amputated. This identified the lesser and greater tuberosities. I then performed a subscapularis peel while rotating the humerus externally. I tagged the subscapularis for possible repair later with a tagging suture. I then made a anatomic neck cut of the cartilaginous surface of the humeral head. I placed a canal finding reamer at the superior apex of the humeral head. I then sequentially broached to a size 2 broach with excellent rotational control. I placed a humeral protector plate and subluxed the humeral head posteriorly. I then placed retractors around the posterior and anterior glenoid to expose the glenoid. Glenoid labrum was removed with Bovie cautery protecting the axillary nerve, which was in close proximity to the glenoid neck. We then used the custom guide from [employer] to position our centering pin. Guide was removed and pin was analyzed and compared to preoperative planning. It appeared to be in appropriate position. This was reamed about 1 mm deep. We then remove the reamer and used the cannulated drill for the central 35 mm screw. Pin was removed. Central screw and baseplate was assembled on the back table. We then inserted the baseplate and central screw the assembled baseplate to an appropriate depth. A Manning was used to confirm depth. Cortical screws then were placed in the most superior and inferior holes with good purchase. The baseplate had excellent purchase and the entire scapula would rotate with rotation of the baseplate. We then impacted the 36 mm +3 lateralized glenosphere with a standard eccentricity. Locking screw was then placed in the centering hole of the glenosphere with excellent purchase. We then removed retractors and turned our attention back to the humerus. I placed a low eccentric [place] +0 tray and 6 mm polyethylene insert. I then reduced the shoulder. There was excellent range of motion and stability in all planes of motion. We selected this as our final size. We removed trials from the humerus after final dislocation. I copiously irrigated the canal. Broach was placed on hand and then impacted to an appropriate depth. Final +6 mm polyethylene insert was placed. Final reduction was then performed. I then copiously irrigated the wound with Betadine solution and normal saline solution. Hemostasis was excellent. The axillary nerve was palpated and visualized and appeared to be intact. The subscapularis was then identified with a tagging suture. Repair would have been likely under undue tension and likely failed. I elected to not perform a subscapularis repair. We then copiously irrigated the wound with normal saline solution. We reapproximated the interval with 0 Vicryl suture. Subcutaneous layers were reapproximated with 2 -0 Vicryl suture. Skin was finally running V-Loc 3-0 Monocryl suture and Dermabond. A sterile silver Mepilex dressing was applied. Patient was then placed in a abduction pillow sling. Patient tolerated procedure well without complication. She was positioned back in the supine position extubated in the operative suite. She was transferred [facility] and subsequently to PACU in stable condition. Need for skilled resident assistant: Enedina Calvo PA-C was critical to the outcome of the case. During the course of the procedure the physician resident assistant played a vital role. Her intimate knowledge of my steps in the procedure aided in safe and expedient completion of the procedure. The PA played a vital role in positioning particularly in obtaining the appropriate positioning. The PA was also vital in the retraction of soft tissues during the exposure and projecting vital structures. The PA was also vital and protecting soft tissues during times of bony cuts. She also played a vital role in closure with my direct supervision. The PA was also important during reduction and dislocation of the joint and trials intraoperatively. Intraoperative medications: 2 g Ancef IV, 1 g TXA IV x2 Post Operative Plan: Weightbearing: Nonweightbearing left upper extremity, okay for pendulums. Range of motion of wrist elbow and hand as tolerated. Antibiotics: 2 g Ancef IV prior to incision DVT Prophylaxis: Aspirin 81 mg twice daily starting tomorrow Pleitez: None Dressing: Maintain silver dressing x7 days. Okay to shower dressing on started on day 4 X-Rays: 2 weeks postop in the office Pain Medication: [place] Rx upon discharge Follow-up: 2 weeks post-operatively with me in the office
== END 2021-08-11 23:59 | disposition home or self-care (01) ==
LOC: SDC 05:57 → AC 05:57
PROVIDERS: Anesthesiology; PCP Family Medicine; Referring Provider Student in an Organized Health Care Education/Training Program; Visit Provider Student in an Organized Health Care Education/Training Program
PROC: (CPT 23472; principal; 2021-08-11 07:30)
DX: M19.112 Post-traumatic osteoarthritis, left shoulder (principal); I10 Essential (primary) hypertension; E78.5 Hyperlipidemia, unspecified; E66.8 Other obesity; Z68.36 Body mass index [BMI] 36.0-36.9, adult; Z78.0 Asymptomatic menopausal state; Z79.899 Other long term (current) drug therapy
CPT/HCPCS: 23472; 64415; 36415; 71046; 73030; 80048; 82962; 83735; 85025; 87081; 87426; 88304; 88305; 88311; 93005; 97166; C1776; C9803; J7120; J2405; J3475

== ENCOUNTER → 2022-03-09 | Outpatient (CLI) | payer MEDICARE, BC, SELFPAY ==
[2022-03-09 15:55] LABS: Amphetamine Urine VISTA NEGATIVE (<1000 ng/mL); Barbiturate Urine VISTA NEGATIVE (< 200 ng/mL); Benzodiazepine Urine VISTA NEGATIVE (< 200 ng/mL); Cocaine Urine VISTA NEGATIVE (< 300 ng/mL); Ecstacy Urine VISTA NEGATIVE (< 500 ng/mL); Methadone Urine VISTA NEGATIVE (< 300 ng/mL); PCP Urine VISTA NEGATIVE (< 25 ng/mL); THC Urine VISTA NEGATIVE (< 50 ng/mL); Vista UDS pH Range 4
== END | disposition home or self-care (01) ==
LOC: LAB 15:05
PROVIDERS: PCP Family Medicine; Referring Provider Anesthesiology Pain Medicine; Visit Provider Anesthesiology Pain Medicine
DX: F11.20 Opioid dependence, uncomplicated (principal)
CPT/HCPCS: 80307

== ENCOUNTER → 2022-09-30 | Outpatient (CLI) | payer MEDICARE, BC, SELFPAY ==
--- NOTE | 2022-09-30 09:06 | MRI_ITS ---
EXAM: MR RIGHT LOWER EXTREMITY WITHOUT INTRAVENOUS CONTRAST, KNEE CLINICAL INDICATION: RT KNEE PAIN-medial TECHNIQUE: Multiplanar and multisequence MR images of the right knee without intravenous contrast. COMPARISON: No relevant prior studies available. FINDINGS: BONES/JOINTS: Small amount of suprapatellar joint fluid. Full-thickness fissuring without subchondral signal alteration at the junction of the median ridge of the patella and lateral patellar facet. Full-thickness fissure with focal subchondral signal alteration at the medial patellar facet. EXTENSOR MECHANISM: Unremarkable. MEDIAL MENISCUS: Complex tear of the posterior horn of the medial meniscus. Torn posterior root ligament of the medial meniscus. 4.5 mm of peripheral extrusion of the body segment of the medial meniscus. LATERAL MENISCUS: Unremarkable. MEDIAL CAPSULE/SUPPORTING STRUCTURES: Unremarkable. Intact. LATERAL CAPSULE/SUPPORTING STRUCTURES: Unremarkable. Lateral collateral ligamentous complex, inclusive of the popliteal tendon, are intact. ANTERIOR CRUCIATE LIGAMENT: Unremarkable. Intact. POSTERIOR CRUCIATE LIGAMENT: Unremarkable. Intact. MUSCLES: Unremarkable. CARTILAGE: Unremarkable. Intact. FLUID: Very small residual Valentino''s cyst with evidence of inferior rupture. Question small intra-articular body within the popliteus tendon sheath. No joint effusion. OTHER SOFT TISSUES: Question small intra-articular body within the popliteus tendon sheath MRI/Lower Ext Joint Only (Routine) IMPRESSION: 1. Tear of the posterior horn of the medial meniscus and posterior root ligament of the medial meniscus with 4.5 mm of peripheral extrusion of the body segment of the medial meniscus. 2. Very small residual Valentino''s cyst with evidence of inferior rupture of the Valentino''s cyst. 3. Full-thickness fissuring without subchondral signal alteration at the junction of the median ridge of the patella and lateral patellar facet. Full-thickness fissure with focal subchondral signal alteration at the medial patellar facet. Electronically Signed: Yoandy Mosher MD at 21:20 EDT ,
== END | disposition home or self-care (01) ==
LOC: MRI 09:02
PROVIDERS: PCP Family Medicine; Referring Provider Student in an Organized Health Care Education/Training Program; Visit Provider Student in an Organized Health Care Education/Training Program
DX: M25.561 Pain in right knee (principal)
CPT/HCPCS: 73721

== ENCOUNTER 2022-10-26 05:46 | Day surgery (SDC) | payer MEDICARE, BC, SELFPAY ==
[2022-10-19 15:45] LABS: Absolute Lymphocyte Count 1.98 X10^3/uL (0.83-4.51); Basophil# 0.05 X10^3/uL; Basophil% 0.7 % (0-1); Eosinophil# 0.16 X10^3/uL; Eosinophils% 2.3 % (0-5); Hemoglobin 14.7 g/dL (12.0-15.0); Lymphocyte # 1.98 X10^3/ul (0.83-4.51); Lymphocyte % 28.2 % (19-41); Mean Corp Hgb Conc 33.4 g/dL (32-36); Mean Corpuscular Hgb 31.3 pg (27.0-32.0); Mean Corpuscular Volume 93.8 fL (81-99); Mean Platelet Vol. 9.9 fl (6.2-12.0); Monocyte# 0.76 X10^3/uL; Monocyte% 10.8 % (0-10); NRBC Flagged by Analyzer 0 % (0-5); Neutrophil # 4.04 X10^3/uL (2.7-7.7); Neutrophil % 57.7 % (47-70); Platelet Count 223 K/mm3 (150-450); RBC Distribution Width CV 13.3 % (11.6-14.6); RBC Distribution Width SD 45.4 fl (35.1-43.9); Red Blood Count 4.69 M/mm3 (4.2-5.4)
[2022-10-19 16:28] LABS: Anion Gap 6 (5-15); BUN 21 mg/dL (7-18); BUN/Creat Ratio 26.6 RATIO (10-20); Chloride 108 mmol/L (98-107); Creatinine, Serum 0.79 mg/dL (0.55-1.02); EST Glomerular Filtration Rate 76 mL/min (>60); Est Glom Filt Rate - Afr Amer 92 mL/min (>60); Glucose 83 mg/dL (74-106); Potassium 4.2 mmol/L (3.5-5.1); Sodium Level 141 mmol/L (136-145)
[2022-10-26] VITALS (13 sets, daily range): BP systolic 144–177; BP diastolic 73–111; PULSE 54–88; RESP 14–18; TEMP 36.2–37.1; O2SAT 92–97; BMI 32.8
[2022-10-26] MEDS: Lactated Ringers 1,000 ML 15 ML IV (06:50)
[2022-10-26] MEDS: Cefazolin 2 GM in 0.9% Normal Saline 100 ML IV (07:30)
[2022-10-26] MEDS: Epinephrine (1 mg/ml) 1 MG/ML VIAL (08:15)
[2022-10-26] MEDS: Bupivacaine 0.25% 30 ML Vial (08:16)
--- NOTE | 2022-10-26 09:08 | DCINST_ITS ---
Discharge Instructions Follow Up Care Test Results: Test results from this visit will be discussed in further detail at your follow- up appointment, if applicable. Discharge Plan Admission Primary Reason for Your Visit: Right knee arthroscopy Attending Provider: Chirag Peres Primary Care Provider: Michael Perdomo Instructions Additional Instructions / Restrictions: Follow preprinted instructions from your surgeons office Discharge Orders/Prescriptions Prescriptions: New hydrocodone-acetaminophen 5-325 mg tablet 1 tab PO Q6H PRN (Reason: pain) 7 Days Qty: 28 0RF Continued gabapentin 100 mg capsule 100 mg PO TID metoprolol tartrate 25 mg tablet 25 mg PO BID tizanidine [Zanaflex] 4 mg tablet 4 mg PO ONCE Patient Comments: TAKE 1 TABLET BY MOUTH AT NIGHT losartan 50 mg tablet 50 mg PO DAILY Qty: 90 3RF Held hydrocodone-acetaminophen 5-325 mg tablet 1 tab PO TID Hold Instructions: Resume on 11/10/22. Increase does to 4x per day for the first 2 weeks post operatively as needed Patient Comments: TAKE 1 TABLET BY MOUTH THREE TIMES DAILY NEEDED FOR 28 DAYS Referrals / Follow Up: Michael Perdomo MD [Primary Care Provider] - Chirag Peres DO [Med Staff - Active Staff] - Disposition Disposition (needs filled in before D/C Order can be placed): Home, Self Care
--- NOTE | 2022-10-26 17:43 | OP.PCM_ITS ---
Report of Operation Date of Procedure: 10/26/22 Description of Surgical Findings:: Preoperative diagnosis: Right knee medial meniscal posterior horn tear with possible root instability Postoperative diagnosis: Right knee medial meniscal root tear Procedure: Right knee diagnostic and operative arthroscopy with medial meniscus root repair Surgeon: Chirag Peres DO Survey Supervisor: Enedina Calvo PA-C Sample Book Maker: Brennen Nogueira CRNA Anesthesia: General LMA Complications: None apparent Specimen: None Packing/drains: None Implants: Arthrex 4.75 mm bio composite swivel lock anchor x1 Intraoperative findings: Degenerative fraying and tearing of the medial meniscus with unstable meniscal root Preoperative indications: This is a 71-year-old female seen in the outpatient setting for acute onset right knee pain. She denied any inciting injury. She had minimal mechanical symptoms with her chief complaint being knee pain. We attempted nonoperative management due to benign x-rays with activity modification, home exercises, oral analgesics, and intra-articular corticosteroid injection. This failed to provide any significant relief. MRI was obtained demonstrating medial meniscal tearing with questionable root instability. There was extrusion of the meniscus noted on MRI. I recommend surgical intervention in the form of right knee diagnostic and operative arthroscopy with medial meniscus repair with possible root repair. The risk, benefits, terms procedure reviewed with the patient at length and treated to proceed. Description of procedure: Patient was identified in the preoperative holding area by name, medical record number, and date of . The operative extremity was marked. All questions answered to patient's satisfaction. At time of her procedure, patient was brought to the operative suite and positioned supine a standard operating table. All bony promises were well-padded. General anesthesia was induced and LMA placed. A well leg gunter was placed in the patient's left thigh. The right lower extremity was placed in arthroscopic leg gunter. A well-padded pneumatic tourniquet was applied to the right upper thigh. The for the bed was dropped 90 degrees. We prepped and draped the right lower extremity in a normal, sterile orthopedic fashion. We performed timeout with all parties in attendance in agreement the side, site, operation be performed. No concerns voiced elected proceed with surgery. 2 g Ancef was administered IV prior to the procedure by anesthesia staff. I first angulated the right lower extremity with Esmarch bandage. Tourniquet was inflated to 250 mmHg remained up for approximately 50 minutes. Esmarch was removed. I established a standard anterior lateral portal with an 11 blade scalpel. Blunt tipped trocar was used to introduce the arthroscope. 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 Hypertrophic fat pad was noted. Medial compartment was then entered with a valgus stress after the medial lateral gutters were examined and were pristine. Anterior medial portal was established with 11 blade scalpel triangulating with a spinal needle. Central portion of the meniscus appeared to be significantly degenerative fully torn. This was resected to a stable rim with the arthroscopic radial resector. I then probed the meniscal root. There was a remnant meniscus attached to the the root attachment, but a radial tear was present just medial to to this remnant. The remainder of the meniscus was unstable. Examination of the intercondylar notch demonstrated intact ACL and PCL, lateral compartment was entered and appeared minimally degenerative. The lateral meniscus was stable I then proceeded with root repair of the medial meniscus. 2 fiber link sutures were passed with the meniscal scorpion just medial to the radial tear. A far medial accessory portal was made with an 11 blade scalpel and suture tails were retrieved. The footprint at the rate was debrided with a radial resector. I then utilized the vendor supplied root repair guide at the footprint of the meniscal root. Skin along the anterior medial tibial crest was marked and planned trajectory of our bone tunnel and sharply incised with a 15 blade scalpel. I bluntly dissected down to the level of the periosteum. I then drilled with the flip cutting drill to planned trajectory. Flip cutter was deployed and retrograded reamed 5 mm. Flip cutter was then placed back to the 3.5 mm diameter and retrieved. Passing nitinol wire was passed through the bone tunnel retrieved out the anteromedial portal. Repair sutures were also retrieved out the anteromedial portal. Passing wire was utilized to shuttle sutures through the bone tunnel. The meniscus was dunked into the prepared site and tensioned with sutures. Tension appeared appropriate upon probing. I then placed the sutures through the eyelet of a swivel lock anchor. Just distal to the bone tunnel, I drilled unit cortically for a swivel lock anchor. This was tapped. Sutures were tensioned and fixation achieved with excellent purchase of the swivel lock anchor. Sutures were cut flush with the anchor. Tourniquet was deflated. Hemostasis was excellent. We anesthetized the portal sites and bone tunnel incision with 20 cc total 0.5% plain bupivacaine. Incisions were closed in interrupted [id number] fashion with 4-0 nylon suture. A bulky sterile compression dressing was applied. Patient was placed in a T ROM brace locked in full extension. Flexion limited set from 0 to 90 degrees. She was safely explained the operative suite and transferred to her gurney and subsequently to PACU in stable condition. Need for skilled recruitment and outreach assistant: Enedina Calvo PA-C was critical to the outcome of the case. During the course of the procedure the physician recruitment and outreach assistant played a vital role. Her intimate knowledge of my steps in the procedure aided in safe and expedient completion of the procedure. The PA played a vital role in positioning particularly in obtaining the appropriate positioning. The PA was also vital in the retraction of soft tissues during the exposure and protecting vital structures. The PA was also vital and obtaining fracture reduction and assisting with hardware placement. She also played a vital role in closure and brace application with my direct supervision. Postoperative plan: Patient be nonweightbearing to the operative extremity x6 weeks. T ROM brace 0- 90 degrees. Okay for range of motion while in bed. [id number] analgesics encouraged. Prescription for Gloster provided. Follow-up in 2 weeks for suture removal. Physical therapy scheduled for tomorrow for crutch training.
== END 2022-10-26 13:21 | disposition home or self-care (01) ==
LOC: SDC 05:47 → AC 05:47
PROVIDERS: PCP Family Medicine; Referring Provider Student in an Organized Health Care Education/Training Program; Visit Provider Student in an Organized Health Care Education/Training Program
PROC: (CPT 29870; principal; 2022-10-26 07:10)
DX: S83.241A Other tear of medial meniscus, current injury, right knee, initial encounter (principal); M17.11 Unilateral primary osteoarthritis, right knee; M71.21 Synovial cyst of popliteal space [Baker], right knee; I10 Essential (primary) hypertension; E66.8 Other obesity; Z79.899 Other long term (current) drug therapy; Z68.33 Body mass index [BMI] 33.0-33.9, adult; Z86.16 Personal history of COVID-19; X58.XXXA Exposure to other specified factors, initial encounter
CPT/HCPCS: 29882; 29881; 64447; 01400; 36415; 80048; 85025; J7120; J2405

== ENCOUNTER → 2023-01-03 | Outpatient (CLI) | payer MEDICARE, BC, SELFPAY ==
--- NOTE | 2023-01-03 14:48 | CT_ITS ---
STUDY: CTA CHEST REASON FOR EXAM: Female, 72 years old. r/o PE, D-Dimer critical 1.21 RADIATION DOSAGE (If Supplied By Facility): CTDIvol = ( 11.08 ) mGy, DLP = ( 402.74 ) mGycm TECHNIQUE: The examination was performed with the intravenous administration of IV 100mL Isovue-370. Post-processing of the angiographic images was performed, with multiplanar reformation and 3D reconstruction. Individualized dose optimization techniques were used for this CT. COMPARISON: None. FINDINGS: Normal enhancement of the main pulmonary artery and right and left pulmonary arteries. Normal enhancement of the bilateral peripheral pulmonary arteries. There is no demonstrated pulmonary embolism. Normal thoracic aorta and visualized great vessels. There is no demonstrated aortic dissection. There are calcifications of the coronary arteries. There are visualized mediastinal lymph nodes, which are within normal size limits, and with normal morphology. Normal hilar regions. Normal visualized trachea and bronchi. The lungs are well expanded. Minimal increased markings in the pleural aspect of the superior segment of the right lower lobe suggestive of atelectasis. Minimal right pleural effusion. Minimal linear scarring at the lung bases. Normal chest wall structures. There are degenerative changes of thoracic spine. Normal visualized upper abdomen. CT/CTA Chest W/WO Contrast IMPRESSION: No evidence of pulmonary embolism. Mild right pleural effusion with focal atelectasis in the posterior aspect of the superior segment of the right lower lobe. Electronically Signed: Humberto Baltazar MD at 15:30 EDT ,
[2023-01-03 15:14] LABS: CREATININE FINGERSTICK 1.3 mg/dL (0.55-1.02)
== END | disposition home or self-care (01) ==
PROVIDERS: PCP Family Medicine; Referring Provider Internal Medicine Cardiovascular Disease; Visit Provider Internal Medicine Cardiovascular Disease
DX: R79.1 Abnormal coagulation profile (principal); R06.02 Shortness of breath; R06.2 Wheezing; Z98.890 Other specified postprocedural states
CPT/HCPCS: 36415; 71275; 85027; 85379; Q9967; A4216

== ENCOUNTER → 2023-01-03 | Outpatient (CLI) | payer MEDICARE, BC, SELFPAY ==
[2023-01-03 12:50] LABS: Hematocrit 41.1 % (37-47); Hemoglobin 13.6 g/dL (12.0-15.0); Mean Corp Hgb Conc 33.1 g/dL (32-36); Mean Corpuscular Hgb 30.8 pg (27.0-32.0); Platelet Count 264 K/mm3 (150-450); RBC Distribution Width CV 13.8 % (11.6-14.6); RBC Distribution Width SD 46.6 fl (35.1-43.9); Red Blood Count 4.42 M/mm3 (4.2-5.4); White Blood Count 8.9 K/mm3 (4.4-11.0)
[2023-01-03 14:18] LABS: D-Dimer Quantitative (DVT/PE) 1.21 FEU/ug/m (0.27-0.49)
== END | disposition home or self-care (01) ==
LOC: LAB 12:27
PROVIDERS: PCP Family Medicine; Referring Provider Physician Assistant Medical; Visit Provider Physician Assistant Medical
DX: R06.02 Shortness of breath (principal); R06.2 Wheezing
CPT/HCPCS: 36415; 85027; 85379

== ENCOUNTER → 2023-10-17 | Outpatient (CLI) | payer MEDICARE, BC, SELFPAY ==
--- NOTE | 2023-10-17 11:46 | NEURO_ITS ---
NCS and/or EMG Patient Report Ordering Doctor: Chirag Peres DATE OF SERVICE: 10/17/23 Lacie presents with complaints of right elbow pain with tingling in the right forearm. Symptoms have been present for 3 weeks after lifting a box over her head. Electrodiagnostic Findings: Right median motor nerve demonstrates normal distal latency, amplitude and conduction velocity. Right ulnar motor nerve demonstrates approximately 30% drop in conduction across the right elbow. There is normal distal latency and amplitude in the right ulnar motor nerve. Normal right median and right ulnar F?waves. Normal right ulnar and radial sensory responses. Borderline prolonged right median sensory latency at the wrist with diminished amplitude. Needle EMG testing was performed in the right upper limb. 1+ fibrillations noted in the right biceps and right cervical paraspinals. There are 1+ positive sharp waves in the right pronator teres. Motor unit action potentials are normal amplitude and duration. Electrodiagnostic impression: This is an abnormal study in the right upper limb 1. Electrodiagnostic findings suggestive of right-sided ulnar neuropathy. This is consistent with a moderate right cubital tunnel syndrome. 2. Electrodiagnostic findings suggestive of right-sided median neuropathy. This is consistent with a carpal tunnel syndrome. 3. Electrodiagnostic findings suggestive of an acute right C6 radiculopathy. Consider clinical correlation with cervical spine imaging to assess for potent ial disc herniation or stenosis. Multi Select Codes Neurology Neurology Interp Codes: 57574-65 Musc test done w/n test comp (interp) and 91920-68 Nrv cndj tst 5-6 studies (interp)
== END | disposition home or self-care (01) ==
LOC: PSN 10:27
PROVIDERS: PCP Family Medicine; Referring Provider Student in an Organized Health Care Education/Training Program; Visit Provider Student in an Organized Health Care Education/Training Program
DX: G56.21 Lesion of ulnar nerve, right upper limb (principal); R20.2 Paresthesia of skin; M25.521 Pain in right elbow
CPT/HCPCS: 95886; 95909

== ENCOUNTER → 2025-01-22 | Outpatient (CLI) | payer MEDICARE, BC, SELFPAY ==
[2025-01-22 16:00] LABS: Hematocrit 42.7 % (37-47); Hemoglobin 14.6 g/dL (12.0-15.0); Immature Granulocytes Count 0.020 X10^3/uL (0.0-0.0); Mean Corp Hgb Conc 34.2 g/dL (32-36); Mean Corpuscular Volume 90.3 fL (81-99); Mean Platelet Vol. 10.1 fl (6.2-12.0); NRBC Flagged by Analyzer 0 % (0-5); Platelet Count 219 K/mm3 (150-450); RBC Distribution Width CV 13.2 % (11.6-14.6); RBC Distribution Width SD 43.7 fl (35.1-43.9); Red Blood Count 4.73 M/mm3 (4.2-5.4); White Blood Count 7.0 K/mm3 (4.4-11.0)
[2025-01-22 16:44] LABS: Anion Gap 11 (5-15); BUN 13 mg/dL (4-19); BUN/Creat Ratio 20.4 RATIO (10-20); Calcium,Total 9.8 mg/dL (7.6-11.0); Carbon Dioxide 27.0 mmol/L (21.0-32.0); Chloride 103 mmol/L (98-108); Glucose 95 mg/dL (70-99); Potassium 4.5 mmol/L (3.3-5.1); Pro- Brain NATRIURETIC PEPTIDE 1571 pg/mL (<=1800)
== END | disposition home or self-care (01) ==
LOC: LAB 15:37
PROVIDERS: PCP Family Medicine; Referring Provider Nurse Practitioner Family; Visit Provider Nurse Practitioner Family
DX: R06.02 Shortness of breath (principal); I10 Essential (primary) hypertension; E78.5 Hyperlipidemia, unspecified; R53.83 Other fatigue; E66.9 Obesity, unspecified
CPT/HCPCS: 36415; 80048; 83880; 84439; 84443; 85025